=== PATIENT | female | born 1990 | race Caucasian/White ===

== ENCOUNTER 2016-04-04 20:20 | Emergency (ER) | payer BC ==
[2016-04-04 20:33] VITALS: BP 127/65
--- NOTE | 2016-04-04 22:18 | UC ---
Laceration HPI - HPI Summary HPI Summary: OPENING A CAN TONIGHT WHILE MAKING DINNER AND LACERATED RIGHT 3RD FINGER AT THE BASE. HAS FULL ROM. NO NUMBNESS. LAST TDAP 2015 - History Of Current Complaint Chief Complaint: UCLaceration Stated Complaint: FINGER LAC Time Seen by Provider: 04/04/16 22:08 Hx Obtained From: Patient Laceration Location: Finger - RIGHT 3RD FINGER Mechanism Of Injury: Sharp Trauma Onset/Duration: Sudden Onset, Lasting Hours, Still Present Severity: Mild Pain Intensity: 2 Pain Scale Used: 0-10 Numeric Aggravating Factors: Movement - Allergies/Home Medications Allergies/Adverse Reactions: Allergies Allergy/AdvReac Type Severity Reaction Status Date / Time No Known Allergies Allergy Verified 04/04/16 20:33 Home Medications: Home Medications Yyuvpeo-Dhkjcjazbe[facility]-[place] [Excedrin Migraine 250-250-65 mg] 2 tab PO PRN [History] Vitamins W/ Iron Carb [One A Day Womens 28-0.8-235 mg] 1 cap PO 04/04/16 [History] PMH/Surg Hx/FS Hx/Imm Hx Previously Healthy: Yes Neurological History Of: Reports: Migraine - Surgical History Surgical History: Yes Surgery Procedure, Year, and Place: - Family History Known Family History: Negative: Hypertension, Diabetes - Social History Alcohol Use: None Substance Use Type: None Smoking Status (MU): Never Smoked Tobacco - Immunization History Most Recent Influenza Vaccination: 11/25/15 Most Recent Tetanus Shot: 09/24/15 Most Recent Pneumonia Vaccination: never Review of Systems Constitutional: Negative Skin: Other - LACERATION RIGHT 3RD FINGER Respiratory: Negative Cardiovascular: Negative Gastrointestinal: Negative Musculoskeletal: Negative All Other Systems Reviewed And Are Negative: Yes Physical Exam Triage Information Reviewed: Yes Appearance: Well-Appearing, No Pain Distress, Well-Nourished Vital Signs: Initial Vital Signs Temp 97.9 F 04/04/16 20:30 Pulse 70 04/04/16 20:30 Resp 16 04/04/16 20:30 BP 127/65 04/04/16 20:30 Vital Signs Reviewed: Yes Eyes: Positive: Conjunctiva Clear ENT: Positive: Hearing grossly normal Neck: Positive: Supple Respiratory: Positive: No respiratory distress, No accessory muscle use Cardiovascular: Positive: Pulses Normal Abdomen Description: Positive: Soft Musculoskeletal: Positive: ROM Intact, No Edema Neurological: Positive: Alert Psychological: Positive: Age Appropriate Behavior Skin: Positive: Other - 1CM LINEAR LACERATION BASE OF RIGHT THIRD FINGER VOLAR SURFACE Laceration Repair - Laceration Repair 1 Description: Linear Laceration Size After Repair: Length (cm) - 1CM, Width (mm) - 0MM, Depth (mm) - 2MM Modified For Repair: No Anesthesia Used: 2.0% Lido Irrigation With Pressure Irrigation Device: Yes Closure Material: Sutures - 3 SIMPLE INTERRUPTED Closure Method: Single Layer Suture Of: Skin Suture Type: Other - 5-0 SURGIPRO Laceration Course/Dx - Differential Dx - Laceration/Wound Provider Diagnoses: LACERATION REPAIR RIGHT 3RD FINGER Discharge - Discharge Plan Condition: Stable Disposition: HOME Patient Education Materials: Finger Laceration (ED) Referrals: Zulay SAUL,Sonja Aldridge [Primary Care Provider] - If Needed Additional Instructions: APPLY THIN LAYER ANTIBIOTIC OINTMENT UNDER BANDAGE FOR FIRST 2-3 DAYS ONLY. CHANGE BANDAGE DAILY AND NEEDED IF IT BECOMES SOILED OR WET. SEEK FOLLOW-UP IF YOU DEVELOP SPREADING REDNESS OF THE SKIN, PURULENT DRAINAGE, FEVER, INCREASED PAIN OR ANY OTHER CONCERNING SYMPTOMS. RETURN FOR SUTURE REMOVAL IN 10 DAYS
[2016-04-04] MEDS ORDERED: Lidocaine 2% PF * 5 ML VIAL ONE (22:20)
== END 2016-04-04 22:56 | disposition home or self-care (01) ==
LOC: UCEAST 20:20
DX: S61.212A Laceration without foreign body of right middle finger without damage to nail, initial encounter (principal); W26.8XXA Contact with other sharp object(s), not elsewhere classified, initial encounter; Y93.G1 Activity, food preparation and clean up; Y92.9 Unspecified place or not applicable
CPT/HCPCS: 12001; 99211; G0463

== ENCOUNTER 2016-04-16 15:21 | Emergency (ER) | payer BC ==
--- NOTE | 2016-04-16 15:58 | UC ---
Skin Complaint HPI - HPI Summary HPI Summary: Pt is here for suture removal. suture were place 10 days ago at [facility]. - History of Current Complaint Time Seen by Provider: 04/16/16 15:58 Stated Complaint: SUTURE REMOVAL Hx Last Menstrual Period: 2 WEEKS AGO ?: No Onset/Duration: Sudden Onset, Lasting Days Skin Exposure Onset/Duration: Days Ago - 10 days Timing: Constant Onset Severity: Mild Current Severity: None Location: Discrete Aggravating: Touch Alleviating: Other - no direct pressure Associated Signs & Symptoms: Positive: Negative Related History: Other: - laceration repair 10 days ago - Allergy/Home Medications Allergies/Adverse Reactions: Allergies Allergy/AdvReac Type Severity Reaction Status Date / Time No Known Allergies Allergy Verified 04/04/16 20:33 Review of Systems Constitutional: Negative Skin: Other - sutures, [address] no s/sx of infection Eyes: Negative ENT: Negative Respiratory: Negative Cardiovascular: Negative Gastrointestinal: Negative Genitourinary: Negative Motor: Negative Neurovascular: Negative Musculoskeletal: Negative Neurological: Negative Psychological: Negative All Other Systems Reviewed And Are Negative: Yes PMH/Surg Hx/FS Hx/Imm Hx Previously Healthy: Yes Neurological History Of: Reports: Migraine - Surgical History Surgical History: Yes Surgery Procedure, Year, and Place: - Family History Known Family History: Negative: Hypertension, Diabetes - Social History Alcohol Use: None Substance Use Type: None Smoking Status (MU): Never Smoked Tobacco - Immunization History Most Recent Influenza Vaccination: 11/25/15 Most Recent Tetanus Shot: 09/24/15 Most Recent Pneumonia Vaccination: never Physical Exam Triage Information Reviewed: Yes Appearance: Well-Appearing Eye Exam: Normal Neck exam: Normal Respiratory Exam: Other Respiratory: Positive: No respiratory distress Musculoskeletal Exam: Normal Neurological Exam: Normal Psychological Exam: Normal Skin Exam: Other - suture removal, no adverse out comes, laceration skin well approximated and with s/sx of infection. Course/Dx - Differential Diagnoses - Skin Complaint Differential Diagnoses: Other - suture removal - Diagnoses Provider Diagnoses: suture removal. healing wound Discharge - Discharge Plan Condition: Stable Disposition: HOME Patient Education Materials: Stitches Removal (ED) Referrals: Zulay SAUL,Sonja Aldridge [Primary Care Provider] - Additional Instructions: Please follow up with your PCP or return to clinic as needed.
[2016-04-16 16:00] VITALS: BP 133/70
== END 2016-04-16 16:04 | disposition home or self-care (01) ==
LOC: UCEAST 15:21
DX: Z48.02 Encounter for removal of sutures (principal)

== ENCOUNTER 2017-03-04 19:24 | Emergency (ER) | payer BC ==
--- NOTE | 2017-03-04 21:14 | RAD ---
INDICATION: Headaches COMPARISON: December 23, 2009 TECHNIQUE: Noncontrast axial source images were acquired from the skull base to the vertex. FINDINGS: Ventricles/sulci: The ventricles and cisterns are normal in size and configuration for age. Brain parenchyma: There is no focal parenchymal finding, evidence of intracranial mass, or intracranial mass effect. Intracranial hemorrhage:None. Extra-axial spaces: There are no abnormal extra axial fluid collections or evidence of extra-axial mass. Calvarium: There is no calvarial fracture or other calvarial abnormality. Scalp: There is no evidence of scalp or extracalvarial soft tissue abnormality. Paranasal sinuses/mastoid: The paranasal sinuses and mastoid air cells are clear. Other: None. IMPRESSION: NEGATIVE EXAMINATION
[2017-03-04 21:37] LABS: Hematocrit 42 % (35-47); Hemoglobin 14.4 g/dl (12.0-16.0); Mean Corpuscular HGB Conc 34 g/dl (31-36); Mean Corpuscular Hemoglobin 29 pg (27-31); Mean Corpuscular Volume 86 fL (80-97); Mean Platelet Volume 10 um3 (7.4-10.4); Platelet Count 180 10^3/ul (150-450); Red Blood Count 4.92 10^6/ul (4.0-5.4); Red Cell Distribution Width 14 % (10.5-15); White Blood Count 7.5 10^3/ul (3.5-10.8)
[2017-03-04 21:39] LABS: ABS Basophils 0 10^3/ul (0-0.2); ABS Eosinophils 0.2 10^3/ul (0-0.6); ABS Lymphocytes 0.9 10^3/ul (1.0-4.8); ABS Monocytes 0.5 10^3/ul (0-0.8); ABS Nucleated RBC 0 10^3/ul; Eosinophil % 2.6 % (0-6); Lymphocyte % 11.7 % (25-47); Nucleated Red Blood Cells % 0
[2017-03-04 21:53] LABS: INR 1.06 (0.77-1.02)
[2017-03-04] MEDS ORDERED: Ketorolac INJ* 30 MG/ML 1 ML VIAL IV PUSH ONE (22:42)
[2017-03-04] MEDS ORDERED: diPHENhydraMINE IV* 50 MG/ML 1 ml VIAL (BENADRYL) IV ONE (22:42)
[2017-03-04] MEDS ORDERED: Metoclopramide IV* 5 MG/ML 2 ML VIAL IV SLOW PU ONE (22:42)
[2017-03-04] MEDS ORDERED: NS 0.9% 1000 ML* 1,000 ML IV ONE (22:42)
[2017-03-04] MEDS ORDERED: Dexamethasone IV* 4 MG/ML 1 ML (4 MG) IV SLOW PU ONE (22:55)
--- NOTE | 2017-03-04 23:50 | ED ---
Kirill Ellis Stephanie, scribed for Tirso Winn MD on 03/04/17 at 2308 . Headache - HPI Summary HPI Summary: The pt is a 26 y/o F presenting to the ED with c/o migraine HENRY that began at 07: 00 today. Symptoms include sinus pressure (since 2 days ago), photophobia, neck pain, nausea and vomiting. The pt denies rhinorrhea, fever, chills, diaphoresis , dysuria and hematuria. - History Of Current Complaint Chief Complaint: EDHeadache Stated Complaint: MIGRAINE Time Seen by Provider: 03/04/17 22:33 Hx Obtained From: Patient Hx Last Menstrual Period: ? NOW (STATES INCONSISTENT) Onset/Duration: Sudden Onset, Started hours ago - 16, Still Present Timing: Constant Character: Migraine Location of Headache: Frontal Radiates to: neck Aggravating Factor: Nothing Allevating Factors: Nothing Associated Signs And Symptoms: Nausea, Vomiting, Sinus Pressure, Neck Pain, Other (Noted In Comments) - photophobia - Allergies/Home Medications Allergies/Adverse Reactions: Allergies Allergy/AdvReac Type Severity Reaction Status Date / Time No Known Allergies Allergy Verified 06/13/16 15:50 PMH/Surg Hx/FS Hx/Imm Hx Sensory History: Denies: Hx Legally Blind EENT History: Denies: Hx Deafness Neurological History: Reports: Hx Migraine - Surgical History Surgery Procedure, Year, and Place: Infectious Disease History: No Infectious Disease History: Denies: Hx Clostridium Difficile, Hx Hepatitis, Hx Human Immunodeficiency Virus (HIV), Hx of Known/Suspected MRSA, Hx Shingles, Hx Tuberculosis, Hx Known/ Suspected VRE, Hx Known/Suspected VRSA, History Other Infectious Disease, Traveled Outside the [place] in Last 30 Days - Family History Known Family History: Negative: Hypertension, Diabetes - Social History Occupation: Employed Full-time Lives: With Family Alcohol Use: None Substance Use Type: Reports: None Smoking Status (MU): Never Smoked Tobacco Review of Systems Negative: Fever, Chills Positive: Photophobia. Negative: Erythema Positive: Other - sinus pressure. Negative: Sore Throat, Nasal Discharge Negative: Chest Pain Negative: Shortness Of Breath, Cough Positive: Vomiting, Nausea. Negative: Abdominal Pain Negative: dysuria, hematuria Positive: Other - neck pain. Negative: Myalgia, Edema Negative: Rash Psychological: Other - Negative: Dizziness All Other Systems Reviewed And Are Negative: Yes Physical Exam - Summary Physical Exam Summary: Constitutional: Well-developed, Well-nourished, Alert. (-) Distressed Skin: Warm, Dry HENT: Normocephalic; Atraumatic Eyes: Conjunctiva normal, photophobia Neck: Musculoskeletal ROM normal neck. (-) JVD, (-) Stridor, (-) Tracheal deviation Cardio: Rhythm regular, rate normal, Heart sounds normal; Intact distal pulses; The pedal pulses are 2+ and symmetric. Radial pulses are 2+ and symmetric. (-) Murmur Pulmonary/Chest wall: Effort normal. (-) Respiratory distress, (-) Wheezes, (-) Rales Abd: Soft, (-) Tenderness, (-) Distension, (-) Guarding, (-) Rebound Musculoskeletal: (-) Edema Lymph: (-) Cervical adenopathy Neuro: Alert, Oriented x3 Psych: Mood and affect Normal Triage Information Reviewed: Yes Vital Signs On Initial Exam: Initial Vitals Temp Pulse Resp BP Pulse Ox 97.9 F 89 16 109/56 100 03/04/17 19:50 03/04/17 19:50 03/04/17 19:50 03/04/17 19:50 03/04/17 19:50 Vital Signs Reviewed: Yes Diagnostics - Vital Signs Vital Signs Temp Pulse Resp BP Pulse Ox 03/04/17 22:34 79 97 03/04/17 19:50 97.9 F 89 16 109/56 100 - Laboratory Lab Results: Lab Results 03/04/17 03/04/17 03/04/17 Range/Units 21:25 21:25 21:25 WBC 7.5 (3.5-10.8) 10^3/ul RBC 4.92 (4.0-5.4) 10^6/ul Hgb 14.4 (12.0-16.0) g/dl Hct 42 (35-47) % MCV 86 (80-97) fL MCH 29 (27-31) pg MCHC 34 (31-36) g/dl RDW 14 (10.5-15) % Plt Count 180 (150-450) 10^3/ul MPV 10 (7.4-10.4) um3 Neut % (Auto) 79.0 (38-83) % Lymph % (Auto) 11.7 L (25-47) % [place] % (Auto) 6.2 (1-9) % Eos % (Auto) 2.6 (0-6) % Baso % (Auto) 0.5 (0-2) % Absolute Neuts (auto) 6.0 (1.5-7.7) 10^3/ul Absolute Lymphs (auto) 0.9 L (1.0-4.8) 10^3/ul Absolute Monos (auto) 0.5 (0-0.8) 10^3/ul Absolute Eos (auto) 0.2 (0-0.6) 10^3/ul Absolute Basos (auto) 0 (0-0.2) 10^3/ul Absolute Nucleated RBC 0 10^3/ul Nucleated RBC % 0 INR (Anticoag Therapy) 1.06 H (0.77-1.02) APTT 30.3 (26.0-36.3) seconds Sodium 135 (133-145) mmol/L Potassium 4.1 (3.5-5.0) mmol/L Chloride 102 (101-111) mmol/L Carbon Dioxide 25 (22-32) mmol/L Anion Gap 8 (2-11) mmol/L BUN 12 (6-24) mg/dL Creatinine 0.80 (0.51-0.95) mg/dL Est GFR ( Amer) 110.7 (>60) Est GFR (Non-Af Amer) 86.0 (>60) BUN/Creatinine Ratio 15.0 (8-20) Glucose 93 (70-100) mg/dL Calcium 9.6 (8.6-10.3) mg/dL Total Bilirubin 0.50 (0.2-1.0) mg/dL AST 17 (13-39) U/L ALT 10 (7-52) U/L Alkaline Phosphatase 45 (34-104) U/L Total Protein 7.6 (6.4-8.9) g/dL Albumin 4.7 (3.2-5.2) g/dL Globulin 2.9 (2-4) g/dL Albumin/Globulin Ratio 1.6 (1-3) Beta HCG, Quant < 0.60 mIU/mL Result Diagrams: 03/04/17 21:25 03/04/17 21:25 Lab Statement: Any lab studies that have been ordered have been reviewed, and results considered in the medical decision making process. - CT Brain CT Interpretation: No Acute Changes CT Interpretation Completed By: Radiologist - NEGATIVE EXAMINATION Headache Course/Dx - Course Course Of Treatment: Features of typical migraine are present. No concern for subarachnoid hemorrhage or meningitis. ED physician encouraged her to use a netti-pot. Follow up with PCP in 2-3 days. - Diagnoses Provider Diagnoses: Migraine headache, Sinusitis Discharge - Discharge Plan Condition: Stable Disposition: HOME Patient Education Materials: Sinusitis (ED), Migraine Headache (ED) Referrals: Zulay LLAMASC,Sonja Aldridge [Primary Care Provider] - 3 Days Additional Instructions: Return to ED for persistent or worsening symptoms. The documentation as recorded by the Kirill suarez Stephanie accurately reflects the service I personally performed and the decisions made by , Tirso Winn MD.
[2017-03-05 00:41] VITALS: BP 94/52
== END 2017-03-05 00:43 | disposition home or self-care (01) ==
LOC: ED 19:24
DX: G43.909 Migraine, unspecified, not intractable, without status migrainosus (principal); J32.9 Chronic sinusitis, unspecified
CPT/HCPCS: 36415; 70450; 80053; 84702; 85025; 85610; 85730; 96360; 96374; 96375; 99283; J1100; J1200; J1885; J2765

== ENCOUNTER 2017-04-30 16:51 | Emergency (ER) | payer BC ==
[2017-04-30] MEDS ORDERED: Metoclopramide TAB* 10 MG PO ONE (19:02)
[2017-04-30] MEDS ORDERED: Ketorolac INJ* 60 MG/2 ML VIAL IM ONE (19:56)
[2017-04-30] MEDS ORDERED: diPHENhydraMINE IV* 50 MG/ML 1 ml VIAL (BENADRYL) IM ONE (19:57)
[2017-04-30 21:29] VITALS: BP 116/65
--- NOTE | 2017-04-30 21:42 | ED ---
Ismael Ellis Julia, scribed for Ronak Mills on 04/30/17 at 1957 . Headache - HPI Summary HPI Summary: This patient is a 26 year old F presenting to [facility] with a chief complaint of headache for the past two days. Patient states this is a typical migraine headache for her, but has lasted longer than usual. She states she usually get relief from Imitrex, but has been unable to keep the medication down due to recent illness. - History Of Current Complaint Chief Complaint: EDHeadache Stated Complaint: HEADACHE X 2 DAYS, VOMITING Time Seen by Provider: 04/30/17 19:41 Hx Obtained From: Patient Hx Last Menstrual Period: ? NOW (STATES INCONSISTENT) Onset/Duration: Started days ago Timing: Constant Character: Typical Headache Location of Headache: Diffuse Associated Signs And Symptoms: Negative Related History: Similar Episode/DX As: - migraine headache - Allergies/Home Medications Allergies/Adverse Reactions: Allergies Allergy/AdvReac Type Severity Reaction Status Date / Time No Known Allergies Allergy Verified 04/30/17 16:55 Home Medications: Home Medications Aspirin/Acetaminophen/Caffeine [Excedrin Migraine Caplet] 1 each PO Q8HR PRN [History Confirmed 04/30/17] Levonorgestrel (Iud) [Mirena IUD] 20 mcg IU DAILY 04/30/17 [History Confirmed ] SUMAtriptan TAB* [Imitrex TAB*] 25 mg PO SEE INSTRUCTIONS PRN 04/30/17 [History Confirmed 04/30/17] PMH/Surg Hx/FS Hx/Imm Hx Cardiovascular History: Denies: Hx Hypertension Sensory History: Denies: Hx Legally Blind, Hx Deafness Opthamlomology History: Denies: Hx Legally Blind EENT History: Denies: Hx Deafness Neurological History: Reports: Hx Migraine - Surgical History Surgery Procedure, Year, and Place: Infectious Disease History: No Infectious Disease History: Denies: Hx Clostridium Difficile, Hx Hepatitis, Hx Human Immunodeficiency Virus (HIV), Hx of Known/Suspected MRSA, Hx Shingles, Hx Tuberculosis, Hx Known/ Suspected VRE, Hx Known/Suspected VRSA, History Other Infectious Disease, Traveled Outside the [place] in Last 30 Days - Family History Known Family History: Negative: Hypertension, Diabetes - Social History Alcohol Use: None Substance Use Type: Reports: None Smoking Status (MU): Never Smoked Tobacco Review of Systems Positive: Other - recent illness Positive: Headache All Other Systems Reviewed And Are Negative: Yes Physical Exam - Summary Physical Exam Summary: Appearance: Well appearing, no pain distress Skin: warm, dry, reflects adequate perfusion Head/face: normal Eyes: EOMI, CHARIS ENT: normal Neck: supple, non-tender Respiratory: CTA, breath sounds present Cardiovascular: RRR, pulses symmetrical Abdomen: non-tender, soft Bowel: present Musculoskeletal: normal, strength/ROM intact Neuro: normal, sensory motor intact, A&Ox3 Triage Information Reviewed: Yes Vital Signs On Initial Exam: Initial Vitals Temp Pulse Resp BP Pulse Ox 97.9 F 117 18 126/79 97 04/30/17 16:52 04/30/17 16:52 04/30/17 16:52 04/30/17 16:52 04/30/17 16:52 Vital Signs Reviewed: Yes Diagnostics - Vital Signs Vital Signs Temp Pulse Resp BP Pulse Ox 04/30/17 19:46 80 16 125/68 97 04/30/17 19:35 90 97 04/30/17 19:34 125/68 04/30/17 18:51 100.2 F 76 16 102/48 97 04/30/17 16:52 97.9 F 117 18 126/79 97 - Laboratory Lab Statement: Any lab studies that have been ordered have been reviewed, and results considered in the medical decision making process. Re-Evaluation - Re-Evaluation 1 Re-Evaluation Time: 21:20 Change: Improved - Patient is feeling better. Headache Course/Dx - Course Course Of Treatment: Patient presents with headache for the past two days. Patient states this is a typical migraine headache for her, but has lasted longer than usual. Pt refuses CT scan due to a previous negative CT scan performed a month ago. Patient is given Benadryl, Toradol, and Reglan. Patient feels better while in ED. Patient is discharged. - Diagnoses Differential Diagnosis/HQI/PQRI: Migraine Provider Diagnoses: Headache, Headache, migraine Discharge - Sign-Out/Discharge Documenting (check all that apply): Discharge - Discharge Plan Condition: Stable Disposition: HOME Patient Education Materials: Migraine Headache (ED) Referrals: Zulay SAUL,Sonja Aldridge [Primary Care Provider] - 3 Days (Follow up with your primary care physician.) - Billing Disposition and Condition Condition: STABLE Disposition: HOME The documentation as recorded by the Ismael suarez Julia accurately reflects the service I personally performed and the decisions made by , Ronak Mills.
== END 2017-04-30 21:29 | disposition home or self-care (01) ==
LOC: ED 16:51
DX: G43.909 Migraine, unspecified, not intractable, without status migrainosus (principal)
CPT/HCPCS: 96372; 99282; A9270-GY; J1200; J1885

== ENCOUNTER 2017-06-25 11:39 | Emergency (ER) | payer BC ==
[2017-06-25 11:47] VITALS: BP 125/71
--- NOTE | 2017-06-25 11:54 | UC ---
Headache HPI - HPI Summary HPI Summary: 26 yo female presents with headache that started this morning. She tells me that she has a long standing history of chronic migraines for which she has seen neurology many years ago. Her last "bad migraine" was about a month ago - saw her PCP was given imitrex. Says that she has had to go to the ED in the past and was given an injection of something that helped a lot during her headaches. She took excedrin for her headache this morning, but has not had any relief. Did not take her imitrex because her headache had already began. Denies fever, chills, recent illness, vision changes, dizziness, SOB, or chest pain. - History Of Current Complaint Chief Complaint: UCHeadache Stated Complaint: HEADACHE Hx Obtained From: Patient Hx Last Menstrual Period: ? NOW (STATES INCONSISTENT) Onset Of Symptoms: Sudden Initially Headache Was: Moderate Currently Pain Is: Moderate Pain Intensity: 7 Pain Scale Used: 0-10 Numeric Timing: Constant - Allergies/Home Medications Allergies/Adverse Reactions: Allergies Allergy/AdvReac Type Severity Reaction Status Date / Time No Known Allergies Allergy Verified 06/25/17 11:47 PMH/Surg Hx/FS Hx/Imm Hx - Additional Past Medical History Additional PMH: Chronic migraines Previously Healthy: Yes - Surgical History Surgical History: Yes Surgery Procedure, Year, and Place: - Family History Known Family History: Negative: Hypertension, Diabetes - Social History Occupation: Employed Full-time Lives: With Family Alcohol Use: Rare Substance Use Type: None Smoking Status (MU): Never Smoked Tobacco - Immunization History Most Recent Influenza Vaccination: 11/25/15 Most Recent Tetanus Shot: 09/24/15 Most Recent Pneumonia Vaccination: never Review of Systems Constitutional: Negative Skin: Negative Eyes: Negative ENT: Negative Respiratory: Negative Cardiovascular: Negative Gastrointestinal: Negative Genitourinary: Negative Neurovascular: Negative Musculoskeletal: Negative Neurological: Headache Psychological: Negative All Other Systems Reviewed And Are Negative: Yes Physical Exam - Summary Physical Exam Summary: GENERAL: NAD. WDWN. No pain distress. SKIN: No rashes, sores, HEENT: Head: AT/NC Eyes: PERRLA. EOM intact. Conjunctiva clear without inflammation or discharge. Ears: Hearing grossly normal. TMs intact, no bulging, erythema, or edema. Nose: Nasal mucosa pink and moist. NTTP maxillary and frontal sinus. Throat: Posterior oropharynx without exudates, erythema, or tonsillar enlargement. Uvula midline. NECK: FROM. Nontender. No lymphadenopathy. CHEST: CTAB. No r/r/w. No accessory muscle use. Breathing comfortably and in no distress. CV: RRR. Without m/r/g. Pulses intact. Brisk cap refill. MSK: FROM in B/L UEs and LEs. Symmetric strength throughout NEURO: A&Ox3. 3 word recall, remote, recent memory, ability to follow 2-step directions, and attention intact. CN II XII grossly intact. [id number]-[id number] are intact. Gait with normal base. Romberg: maintains balance, no pronator drift. Normal speech. No facial drooping. PSYCH: Age appropriate behavior. Triage Information Reviewed: Yes Vital Signs: Initial Vital Signs Temp 98.1 F 06/25/17 11:44 Pulse 76 06/25/17 11:44 Resp 18 06/25/17 11:44 BP 125/71 06/25/17 11:44 Pulse Ox 100 06/25/17 11:44 Headache Course/Dx - Course Course Of Treatment: Suspect migraine. Given IM toradol 30mg and zofran 4mg. Pt had moderate improvement of her headache. She is interested in following up with a neurologist - I will refer her to Dr. Lomax. - Differential Dx/Diagnosis Provider Diagnoses: Migraine Discharge - Sign-Out/Discharge Documenting (check all that apply): Discharge/Admit/Transfer - Discharge Plan Condition: Stable Disposition: HOME Prescriptions: Ondansetron TAB* [Zofran 4 MG Tab*] 4 mg PO Q8H PRN #9 tab PRN Reason: Nausea Patient Education Materials: Migraine Headache (ED) Referrals: Tana Lomax MD [Medical Doctor] - As Soon As Possible Zulay SAUL,Sonja Aldridge [Primary Care Provider] - Additional Instructions: If you develop a fever, shortness of breath, chest pain, new or worsening symptoms - please call your PCP or go to the ED. 1) Please schedule a follow up with Neurology for further evaluation of your migraines - Billing Disposition and Condition Condition: STABLE Disposition: HOME
[2017-06-25] MEDS ORDERED: Ketorolac INJ* 30 MG/ML 1 ML VIAL IM ONE (12:02)
[2017-06-25] MEDS ORDERED: Ondansetron ODT TAB* 4 MG PO ONE (12:02)
== END 2017-06-25 12:25 | disposition home or self-care (01) ==
LOC: UCEAST 11:39
DX: G43.909 Migraine, unspecified, not intractable, without status migrainosus (principal)
CPT/HCPCS: 96372; 99212; A9270-GY; G0463; J1885

== ENCOUNTER 2017-08-27 18:13 | Emergency (ER) | payer BC ==
[2017-08-27 20:03] VITALS: BP 125/75
--- NOTE | 2017-08-27 20:15 | UC ---
Headache HPI - HPI Summary HPI Summary: This is daniela Hall documenting for attending Benton Hardwick MD. This patient is a 26 year old F presenting to [facility] accompanied by family with a chief complaint of frontal headache that began this morning. The patient rates the pain 7/10 in severity. Symptoms aggravated by nothing. Symptoms were not alleviated by her usual medications. Patient reports nausea. Patient denies fever and chills. Medications reviewed. Allergies reviewed. - History Of Current Complaint Chief Complaint: UCHeadache Stated Complaint: HEADACHE, AND VOMITING Time Seen by Provider: 08/27/17 20:00 Hx Obtained From: Patient Hx Last Menstrual Period: iud ?: No Onset/Duration: Sudden Onset, Lasting Hours, Still Present Onset Of Symptoms: Sudden Initially Headache Was: Moderate Currently Pain Is: Moderate Pain Intensity: 7 Pain Scale Used: 0-10 Numeric Timing: Constant Character: Migraine Location of Headache: Frontal Aggravating Factor(s): Nothing Allevating Factor(s): Nothing Associated Signs And Symptoms: Positive: Nausea. Negative: Fever - Allergies/Home Medications Allergies/Adverse Reactions: Allergies Allergy/AdvReac Type Severity Reaction Status Date / Time No Known Allergies Allergy Verified 08/27/17 20:03 PMH/Surg Hx/FS Hx/Imm Hx Previously Healthy: No Cardiovascular History: Other Other Cardiovascular History: Negative HTN Neurological History: Migraine - Surgical History Surgical History: Yes Surgery Procedure, Year, and Place: - Family History Known Family History: Negative: Hypertension, Diabetes - Social History Occupation: Employed Full-time Lives: With Family Alcohol Use: Rare Substance Use Type: None Smoking Status (MU): Never Smoked Tobacco - Immunization History Most Recent Influenza Vaccination: 11/25/15 Most Recent Tetanus Shot: 09/24/15 Most Recent Pneumonia Vaccination: never Review of Systems Constitutional: Other - Negative fever and chills Neurological: Headache All Other Systems Reviewed And Are Negative: Yes Physical Exam - Summary Physical Exam Summary: General: well-appearing, mild pain distress Skin: warm, color reflects adequate perfusion, dry Head: normal Eyes: EOMI, CHARIS ENT: normal Neck: supple, nontender Respiratory: CTA, breath sounds present Cardiovascular: RRR Abdomen: soft, nontender Bowel: present Musculoskeletal: normal, strength/ROM intact Neurological: sensory/motor intact, A&O x3 Psychological: affect/mood appropriate Triage Information Reviewed: Yes Vital Signs: Initial Vital Signs Temp 97.7 F 08/27/17 19:59 Pulse 95 08/27/17 19:59 Resp 18 08/27/17 19:59 BP 125/75 08/27/17 19:59 Pulse Ox 100 08/27/17 19:59 Vital Signs Reviewed: Yes Headache Course/Dx - Course Course Of Treatment: IMPROVED IN CLINIC. F/U PMD; RECHECK SOONER IF WORSE. - Differential Dx/Diagnosis Provider Diagnoses: MIGRAINE HEADACHE Discharge - Sign-Out/Discharge Documenting (check all that apply): Patient Departure - Discharge Plan Condition: Stable Disposition: HOME Patient Education Materials: Migraine Headache (ED) Referrals: Zulay SAUL,Sonja Aldridge [Primary Care Provider] - Additional Instructions: FOLLOW UP WITH YOUR DOCTOR. GET RECHECKED FOR ANY WORSENING OF YOUR CONDITION OR QUESTIONS OR CONCERNS. - Billing Disposition and Condition Condition: STABLE Disposition: Home
[2017-08-27] MEDS ORDERED: Ondansetron ODT TAB* 4 MG PO ONE (20:20)
[2017-08-27] MEDS ORDERED: Ketorolac INJ* 60 MG/2 ML VIAL IM ONE (20:20)
== END 2017-08-27 21:25 | disposition home or self-care (01) ==
LOC: UCEAST 18:13
DX: G43.909 Migraine, unspecified, not intractable, without status migrainosus (principal); G44.89 Other headache syndrome
CPT/HCPCS: 99211; A9270-GY; G0463; J1885

== ENCOUNTER 2017-10-08 20:00 | Emergency (ER) | payer BC ==
--- NOTE | 2017-10-09 08:40 | UC ---
Discharge - Sign-Out/Discharge Documenting (check all that apply): Post-Discharge Follow Up All imaging exams completed and their final reports reviewed: No Studies - Discharge Plan Disposition: LEFT WITHOUT BEING SEEN Referrals: Zulay SAUL,Sonja Aldridge [Primary Care Provider] - - Billing Disposition and Condition Disposition: Left Without Being Seen
== END 2017-10-08 20:09 | disposition left against medical advice (07) ==
LOC: UCEAST 20:00
DX: R51 Headache (principal); Z53.21 Procedure and treatment not carried out due to patient leaving prior to being seen by health care provider

== ENCOUNTER 2017-11-16 10:22 | Emergency (ER) | payer BC ==
[2017-11-16 10:30] VITALS: BP 116/67
--- NOTE | 2017-11-16 10:43 | UC ---
Headache HPI - HPI Summary HPI Summary: 27 yo female presents with headache. She tells me that she has a history of chronic migraines and takes imitrex for these. Recently she developed her usual migraine symptoms 3 days ago that consist of frontal headache, nausea, and vomiting. These symptoms persisted until yesterday when her headache seemed to be nearly resolved, but she woke up this morning with her migraine in full effect again. She has vomited once this morning and feels nauseous. She says that in the past she has had fluids and toradol with good relief. She denies fever, chills, recent illness, sinus symptoms, SOB, chest pain, dysuria, numbness, tingling, or head injury. - History Of Current Complaint Chief Complaint: UCHeadache Stated Complaint: MIGRAINE,VOMITTING Time Seen by Provider: 11/16/17 10:43 Hx Obtained From: Patient Hx Last Menstrual Period: iud Initially Headache Was: Moderate Currently Pain Is: Moderate Pain Intensity: 6 Pain Scale Used: 0-10 Numeric - Allergies/Home Medications Allergies/Adverse Reactions: Allergies Allergy/AdvReac Type Severity Reaction Status Date / Time No Known Allergies Allergy Verified 11/16/17 10:30 PMH/Surg Hx/FS Hx/Imm Hx - Additional Past Medical History Additional PMH: Migraine - Surgical History Surgical History: Yes Surgery Procedure, Year, and Place: - Family History Known Family History: Negative: Hypertension, Diabetes - Social History Occupation: Employed Full-time Lives: With Family Alcohol Use: Rare Substance Use Type: None Smoking Status (MU): Never Smoked Tobacco - Immunization History Most Recent Influenza Vaccination: 11/25/15 Most Recent Tetanus Shot: 09/24/15 Most Recent Pneumonia Vaccination: never Review of Systems Constitutional: Negative Skin: Negative Eyes: Negative ENT: Negative Respiratory: Negative Cardiovascular: Negative Gastrointestinal: Vomiting, Nausea Genitourinary: Negative Motor: Negative Neurovascular: Negative Musculoskeletal: Negative Neurological: Headache Psychological: Negative All Other Systems Reviewed And Are Negative: Yes Physical Exam - Summary Physical Exam Summary: GENERAL: NAD. WDWN. SKIN: No rashes, sores, ulcers, masses, lesions. HEENT: Head: AT/NC Eyes: PERRLA. EOM intact. Conjunctiva clear without inflammation or discharge. Ears: Hearing grossly normal. TMs intact, no bulging, erythema, or edema. Nose: Nasal mucosa pink and moist. NTTP maxillary and frontal sinus. Throat: Posterior oropharynx without exudates, erythema, or tonsillar enlargement. Uvula midline. NECK: Supple. Nontender. No lymphadenopathy. CHEST: CTAB. No r/r/w. No accessory muscle use. Breathing comfortably and in no distress. CV: RRR. Without m/r/g. Pulses intact. Brisk cap refill. ABDOMEN: Soft. NTTP. No distention or guarding. No CVA tenderness. Bowel sounds present MSK: FROM in B/L UEs and LEs with symmetric strength. NEURO: A&Ox3. CN: II: Peripheral sung intact. Vision normal. III, IV, : EOMI. No nystagmus. PERRLA. V: Sensations intact and symmetric. Opens mouth and clenches teeth. VII: No facial asymmetry. Forehead wrinkles. Grins, shuts eyes, frowns, puffs cheeks. VIII: Hearing intact to finger rub. IX, X: Swallows and coughs. Uvula midline. XI: Shrugs shoulders. Turns head against resistance. XII : No tongue deviation [id number] are intact. Gait with normal base. Romberg : maintains balance, no pronator drift. Normal speech. No facial drooping. PSYCH: Age appropriate behavior. Triage Information Reviewed: Yes Vital Signs: Initial Vital Signs Temp 97.9 F 11/16/17 10:27 Pulse 73 11/16/17 10:27 Resp 18 11/16/17 10:27 BP 116/67 11/16/17 10:27 Pulse Ox 100 11/16/17 10:27 Vital Signs Reviewed: Yes Re-Evaluation - Re-Evaluation First Eval Re-Evaluation Time: 12:02 Change: Improved - S/p fluids, toradol, and zofran pt reports 90% resolution of her symptoms. Still with some residual left front headache, but overall significantly improved Headache Course/Dx - Course Course Of Treatment: Migraine. In the clinic pt was given 1L NS, toradol IV, and Zofran IV with good relief of her headache. Will dc with an rx for Zofran if her nausea continues and advised to f/u with her PCP if her migraines become more frequent. - Differential Dx/Diagnosis Provider Diagnoses: Migraine Discharge - Sign-Out/Discharge Documenting (check all that apply): Patient Departure All imaging exams completed and their final reports reviewed: No Studies - Discharge Plan Condition: Stable Disposition: HOME Prescriptions: Ondansetron HCl [Zofran 4 MG TAB] 4 mg PO Q8H PRN #15 tab PRN Reason: Nausea Patient Education Materials: Migraine Headache (ED) Forms: *Work Release Referrals: Zulay SAUL,Sonja Aldridge [Primary Care Provider] - Additional Instructions: If you develop a fever, shortness of breath, chest pain, new or worsening symptoms - please call your PCP or go to the ED. - Billing Disposition and Condition Condition: STABLE Disposition: Home
[2017-11-16] MEDS ORDERED: NS 0.9% 1000 ML* 1,000 ML IV ONE (10:48)
[2017-11-16] MEDS ORDERED: Ketorolac INJ* 30 MG/ML 1 ML VIAL IV PUSH ONE (10:48)
[2017-11-16] MEDS ORDERED: Ondansetron INJ* 2 MG/ML VIAL IV ONE (10:48)
== END 2017-11-16 12:30 | disposition home or self-care (01) ==
LOC: UCEAST 10:22
DX: G43.909 Migraine, unspecified, not intractable, without status migrainosus (principal)
CPT/HCPCS: 96360; 96374; 96375; 99212; G0463; J1885; J2405

== ENCOUNTER 2017-12-07 15:24 | Emergency (ER) | payer BC ==
[2017-12-07] MEDS ORDERED: Metoclopramide IV* 5 MG/ML 2 ML VIAL IV ONE (18:23)
[2017-12-07] MEDS ORDERED: Ketorolac INJ* 30 MG/ML 1 ML VIAL IV PUSH ONE (18:23)
[2017-12-07] MEDS ORDERED: diPHENhydraMINE IV* 50 MG/ML 1 ml VIAL (BENADRYL) IV PRN (18:23)
[2017-12-07] MEDS ORDERED: NS 0.9% 1000 ML* 1,000 ML IV SCH (18:30)
[2017-12-07] MEDS ORDERED: diPHENhydraMINE IV* 50 MG/ML 1 ml VIAL (BENADRYL) IV ONE (18:56)
--- NOTE | 2017-12-07 19:34 | UC ---
Headache HPI - HPI Summary HPI Summary: 27-year-old female with a history of migraines presents with onset of severe headache behind her left eye and side of face upon waking this morning. States this is fairly typical of her past migraines. Associated with photophobia, phonophobia, and nausea. She took an Excedrin Migraine without any relief. Also took a Zofran earlier which did help with the nausea. Denies fever, chills , visual disturbances, aura, URI symptoms, chest pain, shortness of breath, abdominal pain, or vomiting. - History Of Current Complaint Chief Complaint: UCHeadache Stated Complaint: HEADACHE, AND VOMITING Time Seen by Provider: 12/07/17 18:16 Hx Obtained From: Patient Hx Last Menstrual Period: iud ?: No Onset/Duration: Sudden Onset, Lasting Hours Initially Headache Was: Moderate Pain Intensity: 8 Timing: Constant Character: Migraine Location of Headache: Other: - See HPI Aggravating Factor(s): Bright Lights, Other - Loud sound Allevating Factor(s): Nothing Associated Signs And Symptoms: Positive: Nausea. Negative: Dizziness, Seizure, Vomiting, Sinus Pressure, Fever, Neck Pain, Neck Stiffness, Decreased LOC, Visual Changes - Allergies/Home Medications Allergies/Adverse Reactions: Allergies Allergy/AdvReac Type Severity Reaction Status Date / Time No Known Allergies Allergy Verified 12/07/17 18:02 Home Medications: Home Medications Aspirin/Acetaminophen/Caffeine [Excedrin Migraine Caplet] 1 each PO DAILY [History Confirmed 12/07/17] PMH/Surg Hx/FS Hx/Imm Hx Neurological History: Migraine - Surgical History Surgical History: Yes Surgery Procedure, Year, and Place: - Family History Family History: Noncontributory - Social History Occupation: Employed Full-time Lives: With Family Alcohol Use: Rare Substance Use Type: None Smoking Status (MU): Never Smoked Tobacco - Immunization History Most Recent Influenza Vaccination: 11/25/15 Most Recent Tetanus Shot: 09/24/15 Most Recent Pneumonia Vaccination: never Review of Systems Constitutional: Negative Eyes: Photophobia ENT: Negative Respiratory: Negative Cardiovascular: Negative Gastrointestinal: Nausea Neurological: Headache Is Patient Immunocompromised?: No All Other Systems Reviewed And Are Negative: Yes Physical Exam Triage Information Reviewed: Yes Appearance: Well-Appearing, No Pain Distress, Well-Nourished Vital Signs: Initial Vital Signs Temp 98.3 F 12/07/17 17:58 Pulse 78 12/07/17 17:58 Resp 16 12/07/17 17:58 BP 101/64 12/07/17 17:58 Pulse Ox 100 12/07/17 17:58 Eyes: Positive: Conjunctiva Clear. Negative: Discharge ENT: Positive: TMs normal, Uvula midline. Negative: Pharyngeal erythema, Nasal congestion, Nasal drainage, Tonsillar swelling, Tonsillar exudate, Sinus tenderness Neck: Positive: Supple, Nontender, No Lymphadenopathy Respiratory: Positive: Lungs clear, Normal breath sounds, No respiratory distress Cardiovascular: Positive: RRR, No Murmur Abdomen Description: Positive: Nontender, No Organomegaly, Soft. Negative: Distended, Guarding Neurological Exam: Normal Neurological: Positive: Alert Skin Exam: Normal Re-Evaluation - Re-Evaluation First Eval Re-Evaluation Time: 19:28 Change: Improved Comment: Patient resting quietly on exam table. States headache is still present but improving. Nausea subsided. She has received approximately 400 ml saline at this time. Headache Course/Dx - Course Course Of Treatment: 27 year old female with history of migraine headache presents with intractible migraine that started upon waking this morning. Associated with nausea, photophobia, and phonophobia. Exam was unremarkable. She was given approximately 500 ml IVF, ketoralac, metoclopramide, and diphenhydramine with good relief in symptoms. She is to follow up with her PCP. Warning symptoms reviewed. Verbalizes understanading and agrees with POC. She is discharged home with mother to drive. - Differential Dx/Diagnosis Differential Diagnosis/HQI/PQRI: Migraine, Sinus Headache, Tension Headache Provider Diagnoses: Migraine headache Discharge - Sign-Out/Discharge Documenting (check all that apply): Patient Departure All imaging exams completed and their final reports reviewed: No Studies - Discharge Plan Condition: Stable Disposition: HOME Patient Education Materials: Migraine Headache (ED) Referrals: Zulay SAUL,Sonja Aldridge [Primary Care Provider] - If Needed Additional Instructions: You were given IV fluids, ketoralac, metoclopramide, and diphenhydramine in the clinic tonight with good relief. Continue to use your migraine medications you have at home as needed.\ Stay well hydrated. Get plenty of rest. Follow up with your primary care provider as needed. Seek immediate medical attention in the emergency room if you develop a sudden severe headache that is not typical of your migraine, you have any worsening of your headache, visual disturbances, confusion, are difficult to arouse, persistent vomiting, you become weak or dizzy, or have any worsening of symptoms. - Billing Disposition and Condition Condition: STABLE Disposition: Home
[2017-12-07 19:48] VITALS: BP 113/67
== END 2017-12-07 20:07 | disposition home or self-care (01) ==
LOC: UCEAST 15:24
DX: G43.909 Migraine, unspecified, not intractable, without status migrainosus (principal); Z79.82 Long term (current) use of aspirin
CPT/HCPCS: 96360; 96374; 96375; 99212; G0463; J1200; J1885; J2765

== ENCOUNTER 2018-01-03 11:46 | Emergency (ER) | payer BC ==
--- OUTSIDE RECORDS SUMMARY | 2018-01-03 12:14 | XMS REPORT ---
:1990 External Reference #:[id number] Author Organization [facility] Address [address] [place] [address] Phone [phone] Care Team Providers Name Role Phone Monica Staton Care Team Information Adjunct Trainer Unavailable Monica Staton Primary Care Physician Unavailable Payers Type Date Identification Numbers Payment Provider Subscriber Commercial Effective: Policy Number: BC/BS Of LG Derick Burns 2017 [id number] PayID: [id number] [place] [address] Problems Description No Information Social History Type Date Description Comments Education Highest level completed, Associates Degree Human services Lives With Alone Home Environment Apartment Pets None 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 do not take more than 4 per week. Prochlorperazine 12/14 Active Tablets 10mg 10tab take one G43.009 Elizabeth C. Maleate s tablet Juan, every 6 PASTE MIXING SUPERVISOR hours as needed. Mometasone Furoate 03/16 Active Suspension 50mcg/Act 17gm 2 sprays J01.90 Elizabeth C. /2018 in each Juan, nostril PASTE MIXING SUPERVISOR once daily Sumatriptan 03/16 Active Tablets 50mg 10tab Take 1 G43.009 Elizabeth C. Succinate /2017 s Tablet Juan, By Mouth PASTE MIXING SUPERVISOR AT 1St Sign Of Headache . DO Not Take More Than 3 Days In A Row. 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 01/10 day for 5 days Tazorac Hx Cream 0.05% - 01/10 Aczone Hx Gel 5% - 01/10 Vital Signs Date Vital Result Comment 12/14/2017 BP Systolic 110 mmHg BP Diastolic 60 mmHg Heart Rate 76 /min Body Temperature 96.4 F Respiratory Rate 16 /min Height 66 inches 5'6" Weight 143.00 lb BMI (Body Mass Index) 23.1 kg/m2 03/16/2017 BP Systolic 120 mmHg BP Diastolic 78 mmHg Heart Rate 60 /min Body Temperature 97.3 F Respiratory Rate 18 /min O2 % BldC Oximetry 97 % Height 66 inches 5'6" Weight 143.00 lb BMI (Body Mass Index) 23.1 kg/m2 01/10/2017 BP Systolic 102 mmHg BP Diastolic 60 mmHg Heart Rate 76 /min Body Temperature 98.0 F Height 66 inches 5'6" Weight 143.12 lb BMI (Body Mass Index) 23.1 kg/m2 11/09/2014 BP Systolic 140 mmHg BP Diastolic 70 mmHg Heart Rate 100 /min Body Temperature 100.0 F Respiratory Rate 16 /min Height 66 inches 5'6" Weight 145.00 lb BMI (Body Mass Index) 23.4 kg/m2 04/30/2012 BP Systolic 100 mmHg BP Diastolic 70 mmHg Heart Rate 76 /min Body Temperature 99.5 F Respiratory Rate 16 /min Height 66 inches 5'6" Weight 143.00 lb BMI (Body Mass Index) 23.1 kg/m2 04/23/2012 BP Systolic 100 mmHg BP Diastolic 60 mmHg Heart Rate 60 /min Body Temperature 99.5 F Respiratory Rate 16 /min Height 66 inches 5'6" Weight 143.00 lb BMI (Body Mass Index) 23.1 kg/m2 Results Test Date Test Result H/L Range Note CBC Auto Diff 03/04/2017 White Blood Count 7.5 10^3/uL 3.5-10.8 1 Red Blood Count 4.92 10^6/uL 4.0-5.4 1 Hemoglobin 14.4 g/dL 12.0-16.0 1 Hematocrit 42 % 35-47 1 Mean Corpuscular Volume 86 fL 80-97 1 Mean Corpuscular Hemoglobin 29 pg 27-31 1 Mean Corpuscular HGB Conc 34 g/dL 31-36 1 Red Cell Distribution Width 14 % 10.5-15 1 Platelet Count 180 10^3/uL 150-450 1 Mean Platelet Volume 10 um3 7.4-10.4 1 Abs Neutrophils 6.0 10^3/uL 1.5-7.7 1 Abs Lymphocytes 0.9 10^3/uL Low 1.0-4.8 1 Abs Monocytes 0.5 10^3/uL 0-0.8 1 Abs Eosinophils 0.2 10^3/uL 0-0.6 1 Abs Basophils 0 10^3/uL 0-0.2 1 Abs Nucleated RBC 0 10^3/uL 1 Granulocyte % 79.0 % 38-83 1 Lymphocyte % 11.7 % Low 25-47 1 Monocyte % 6.2 % 1-9 1 Eosinophil % 2.6 % 0-6 1 Basophil % 0.5 % 0-2 1 Nucleated Red Blood Cells % 0 1 Inr/Protime 03/04/2017 Inr 1.06 High 0.77-1.02 1 Laboratory test finding 03/04/2017 Partial Thrombo Time 30.3 seconds 26.0 -36.3 1 PTT Comp Metabolic Panel 03/04/2017 Sodium 135 mmol/L 133-145 1 Potassium 4.1 mmol/L 3.5-5.0 1 Chloride 102 mmol/L 101-111 1 Co2 Carbon Dioxide 25 mmol/L 22-32 1 Anion Gap 8 mmol/L 2-11 1 Glucose 93 mg/dL 70-100 1 Blood Urea Nitrogen 12 mg/dL 6-24 1 Creatinine 0.80 mg/dL 0.51-0.95 1 BUN/Creatinine Ratio 15.0 8-20 1 Calcium 9.6 mg/dL 8.6-10.3 1 Total Protein 7.6 g/dL 6.4-8.9 1 Albumin 4.7 g/dL 3.2-5.2 1 Globulin 2.9 g/dL 2-4 1 Albumin/Globulin Ratio 1.6 1-3 1 Total Bilirubin 0.50 mg/dL 0.2-1.0 1 Alkaline Phosphatase 45 U/L 34-104 1 Alt 10 U/L 7-52 1 Ast 17 U/L 13-39 1 Egfr Non- 86.0 >60 1 Egfr 110.7 >60 1, 2 Laboratory test finding 03/04/2017 HCG < 0.60 mIU/mL 1, 3 Laboratory test finding 01/10/2017 Quickstrep negative Negative Influenza A&B-fma 01/10/2017 Influenza A neg Influenza B neg Laboratory test 06/13/2016 Urine Culture And SEE RESULT BELOW 4, 5 finding Sensitivities Poc Urinalysis 06/13/2016 Poc Glucose, Urine Negative Negative Poc Bilirubin, Urine Negative Negative Poc Ketone, Urine Negative Negative Poc Specific [place], Urine 1.025 1.010-1.030 Poc Blood, Urine 3+ Negative Poc pH, Urine 6.0 5-9 Poc Protein, Urine 1+ Negative Poc Urobilinogen, Urine 0.2 Negative Poc Nitrite, Urine Positive Negative Poc Leukocytes, Urine Trace Negative Poc Color, Urine Krystin Poc Clarity, Urine Clear 6 Hepatitis Panel, Acute 11/23/2014 Hep A Ab, IgM Negative Negative 7 HBsAg Screen Negative Negative 7 Hep B Core Ab, IgM Negative Negative 7 Hep C Virus Ab <0.1 s/coratio 0.0-0.9 7, 8 Panel [id number] [facility] PT Only 11/23/2014 HIV 1/O/2 Abs-Index Value <1.00 < 1.00 7, 9 HIV 1/O/2 Abs, Qual Non Reactive Non Reactive 7 Laboratory test 11/23/2014 RPR Non Reactive Non Reactive 7 finding Vaginitis/Vaginosis 11/09/2014 Dolores species Negative Negative 10, 11 Dna Probe Gardnerella vaginalis Positive Negative 10, 12 Trichomonas vaginalis Negative Negative 10, 13 Chlam/GC And HSV 1&2 Chelsie 11/09/2014 Chlamydia by Chelsie Negative Negative 10, 14 Gonococcus by Chelsie Negative Negative 10, 15 HSV 1 Chelsie Negative Negative 10, 16 HSV 2 Chelsie Positive Negative 10, 17 Ua - Non Micro (Fma) 11/09/2014 Appearance SLIGHTLY CLOUDY Color YELLOW Glucose, Urine (a/CMC/CTX) NEG Bilirubin NEG Ketones NEG SP Grav 1.010 Blood SMALL No Micro Per LG PH 5.0 Protein NEG Urobil 0.2 Nitrite NEG Leukocytes ([facility] [place]) SMALL Laboratory test finding 02/10/2014 Human Papilloma Virus Positive Negative 18 Rna CBC Auto Diff 09/09/2012 White Blood Count 6.0 10^3/uL 4.8-10.8 Red Blood Count 5.04 10^6/uL 4.0-5.4 Hemoglobin 14.3 g/dL 12.0-16.0 Hematocrit 43 % 35-47 Mean Corpuscular Volume 85 fL 80-97 Mean Corpuscular Hemoglobin 28 pg 27-31 Mean Corpuscular HGB Conc 33 g/dL 31-36 Red Cell Distribution Width 13 % 10.5-15 Platelet Count 108 10^3/uL Low 150-450 Mean Platelet Volume 10 um3 7.4-10.4 Abs Neutrophils 4.2 10^3/uL 1.5-7.7 Abs Lymphocytes 0.8 10^3/uL Low 1.0-4.8 Abs Monocytes 0.7 10^3/uL 0-0.8 Abs Eosinophils 0.2 10^3/uL 0-0.6 Abs Basophils 0 10^3/uL 0-0.2 Abs Nucleated RBC 0 10^3/uL Granulocyte % 70.7 % 38-83 Lymphocyte % 14.1 % Low 25-47 Monocyte % 11.6 % High 1-9 Eosinophil % 3.2 % 0-6 Basophil % 0.4 % 0-2 Nucleated Red Blood Cells % 0.1 Comp Metabolic Panel 09/09/2012 Sodium 139 mmol/L 133-145 Potassium 4.1 mmol/L 3.5-5.0 Chloride 103 mmol/L 101-111 Co2 Carbon Dioxide 29.0 mmol/L 22-32 Anion Gap 7.0 mmol/L 2-11 Glucose 102 mg/dL High 70-100 Blood Urea Nitrogen 13 mg/dL 6-24 Creatinine 0.90 mg/dL 0.50-1.40 BUN/Creatinine Ratio 14.4 8-20 Calcium 9.7 mg/dL 8.1-9.9 Total Protein 8.1 g/dL 6.2-8.1 Albumin 4.6 g/dL 3.6-5.4 Globulin 3.5 g/dL 2-4 Albumin/Globulin Ratio 1.3 1-3 Total Bilirubin 0.7 mg/dL 0.4-1.5 Alkaline Phosphatase 56 U/L 30-110 Alt 16 U/L 14-54 Ast 22 U/L 12-42 Egfr Non- 78.3 >60 Egfr 100.7 >60 19 Laboratory test 09/09/2012 C Reactive Protein 4.6 mg/dL High Less than 0.5 finding Laboratory test 04/30/2012 Thin Prep SEE NOTE 20 finding W/HPV(Lsil/RENZO/Asc) 1 Giant Platelets 2 Because ethnic data is not always readily available, this report includes an eGFR for both -Americans and non- Americans. The National Kidney Disease Education Program (NKDEP) does not endorse the use of the MDRD equation for patients that are not between the ages of 18 and 70, are , have extremes of body size, muscle mass, or nutritional status, or are non- or non-. According to the National Kidney Foundation, irrespective of diagnosis, the stage of the disease is based on the level of kidney function: Stage Description GFR(mL/min/1.73 m(2)) 1 Kidney damage with normal or decreased GFR 90 2 Kidney damage with mild decrease in GFR 60-89 3 Moderate decrease in GFR 30-59 4 Severe decrease in GFR 15-29 5 Kidney failure <15 (or dialysis) 3 <5.0 Negative 5.0 - 25.0 Indeterminate (Repeat testing recommended after 72 hours) >25.0 Positive Perimenopausal women can display HCG levels of up to 20 mIU/mL 4 [id number] 5 SEE RESULT BELOW Name: DERICK THOMPSON : [address]: Vaibhav Martinez MD Acct: [id number] Unit: [id number] AGE: 25 Location: [facility] Re06/13/16 SEX: F Status: DEP ER SPEC: [id number] RAMONA: 06/13/16-[address] [facility] [address]: Kelly MAYA REQ: [id number] RECD: 06/13/16 STATUS: NISREEN SWANSON DR: [facility] Sonja Biswas PASTE MIXING SUPERVISOR _ SOURCE: URINE SPDESC: ORDERED: Urine Culture COMMENTS: [id number] Procedure Result Reported Site Urine Culture Final 06/15/16- 0810 ML Organism 1 [facility] KOSERI Welsh Count >100,000 (Many) CFU/ML 1. [facility]ROBACTER KOSERI M.I.C. RX --------- ------ Cefazolin <=4 S Cefepime <=1 S Ceftriaxone <=1 S Ciprofloxacin <=0.25 S Gentamicin <=1 S Levofloxacin <=0.12 S Meropenem <=0.25 S Nitrofurantoin <=16 S Tetracycline <=1 S Pipercillin/Tazobactam <=4 S Trimethoprim/Sulfamethoxazole <=20 S Amoxicillin/Clavulanic Acid >=32 R Aztreonam <=1 S Contact the Microbiology Department for any additional antibiotic reporting. * ML - MAIN LAB ([facility]) . END OF REPORT * ML=Testing performed at Main Lab DEPARTMENT OF PATHOLOGY, [address] [place] [address] Elijah Clark M.D. Director [facility] # [id number] 6 Senior Mortgage Underwriter: [id number] 3 SST 8 Negative: < 0.8 Indeterminate: 0.8 - 0.9 Positive: > 0.9 In order to reduce the incidence of a false positive result, the CDC recommends that all s/co ratios between 1.0 and 10.9 be confirmed by a more specific supplemental or PCR testing. [employer] offers HCV Ab w/Reflex to Verification test #[id number]. 9 Index Value: Specimen reactivity relative to the negative cutoff. 10 SRC:VAGINAL 1 AFFIRM SWAB 11 Source of Specimen: VAGINAL 1 AFFIRM SWAB 12 Source of Specimen: VAGINAL 1 AFFIRM SWAB 13 Source of Specimen: VAGINAL 1 AFFIRM SWAB 14 Source of Specimen: VAGINAL 1 AFFIRM SWAB 15 Source of Specimen: VAGINAL 1 AFFIRM SWAB 16 Source of Specimen: VAGINAL 1 AFFIRM SWAB 17 Source of Specimen: VAGINAL 1 AFFIRM SWAB 18 The high-risk HPV types detected by the assay include: 16, 18, 31, 33, 35, 39, 45, 51, 52, 56, 58, 59, 66, and 68. 19 Because ethnic data is not always readily available, this report includes an eGFR for both -Americans and non- Americans. The National Kidney Disease Education Program (NKDEP) does not endorse the use of the MDRD equation for patients that are not between the ages of 18 and 70, are , have extremes of body size, muscle mass, or nutritional status, or are non- or non-. According to the National Kidney Foundation, irrespective of diagnosis, the stage of the disease is based on the level of kidney function: Stage Description GFR(mL/min/1.73 m(2)) 1 Kidney damage with normal or decreased GFR 90 2 Kidney damage with mild decrease in GFR 60-89 3 Moderate decrease in GFR 30-59 4 Severe decrease in GFR 15-29 5 Kidney failure <15 (or dialysis) 20 [employer]. DEPARTMENT OF PATHOLOGY or Extension 4082 EYE SPECIALIST CYTOLOGY REPORT PATIENT: DERICK THOMPSON : 1990 AGE: 21 Y SEX: F ACCT: [id number] PROCEDURE DATE: 04/30/2012 DATE RECEIVED: 05/02/2012 REQUESTING PROVIDER: SONJA BISWAS NP [place] [facility] [place] [id number] PATIENT DATA: [id number] SPECIMEN SUBMITTED: * * (HPVII) THIN PREP W/HPV (LSIL/ASC/RENZO) * * ENDOCERVICAL RELEVANT HISTORY: Contraceptive: DEPO-NO LONGER Prev.normal: 4 YRS AGO Comment: LMP 2 YEARS AGO SPECIMEN ADEQUACY SATISFACTORY FOR EVALUATION, ENDOCERVICAL TRANSFORMATION ZONE COMPONENT PRESENT GENERAL CATEGORIZATION EPITHELIAL CELL ABNORMALITY: SEE "INTERPRETATION/RESULT" INTERPRETATION/ RESULT HIGH GRADE SQUAMOUS INTRAEPITHELIAL LESION ENCOMPASSING MODERATE DYSPLASIA. RECOMMENDATIONS Follow-up as clinically indicated. See www.asccp.org and articles in Am J of Obstet Gynecol 2007 Oct; 197(4), for current consensus recommendation guidelines. COMMENTS Thin Prep Pap tests are examined with an FDA approved location-guidance system. ADDITIONAL COPIES SENT TO: Screened/Rescreened Electronically Signed Sign Out Date/Time: by: by: JOY RODRÍGUEZ MD 05/02/2012 16:33 PATHOLOGIST Note: The Pap smear is a screening test designed to aid in the detection of premalignant and malignant conditions of the uterine cervix. It is not a diagnostic procedure and should not be used as the sole means of detecting cervical cancer. Both false-positive and false-negative reports do occur. 00 UA Pap Smear performed at [place] Dir: Yi Leyva MD, [address] [facility] [address] 01 school speech language pathologist [facility] [place] Dir: Richard Aparicio MD, [address] [facility] [address] 02 [facility] [place] Dir: Benton Wilcox MD, [address] [place] [id number] For inquiries regarding HPV test results, the physician may contact Lab [facility]: [phone] . Procedures Description No Information Encounters Type Date Location Provider CPT E/M Dx Office Visit 03/16/2017 2:15p [facility] [place] [address] H61.23 G43.009 J01.90 Office Visit 01/10/2017 3:15p [facility] [place] [address] J02.9 B34.9 Office Visit 11/09/2014 3:00p [facility] CHARLES Cosby [address] R50.9 R30.0 N76.0 G43.009 Office Visit 04/30/2012 3:15p [facility] Jimi Wang [address] V72.31 Office Visit 04/23/2012 3:00p [facility] Jimi Wang [address] 796.2 Plan of Care 12/14/2017 - Elizabeth Martinez NPG43.009 Migraine w/o aura, not intractable, w/ o status migrainosusNew Medication:Maxalt 10 mgProchlorperazine Maleate 10 mgComments:STOP taking excedrin altogether. If you can go 4 weeks without aspirin/ibuprofen/acetaminophen, you can retintroduce it but not more than 3 times per week.Drink plenty of water.Start a magnesium supplement.AllComments: 1. Patient has been queried about patient's goals/preferences and functional/ lifestyle goals at relevant visits. If relevant, describe: Has been discussed, noted above2. Treatment goals as explainedto the patient: see above3. Are there barriers to meeting treatment goals? Yes If Yes, please describe: Barriers include possible insurance limits, disease process, and difficulty with lifestyle changes4. Self-Management goals as described to the patient: Yes , see above As always, we strongly encourage a healthy diet and making physical activity a part of your every day life. If you have questions about how or where to start, please contact the office.
[2018-01-03 12:15] VITALS: BP 120/74
[2018-01-03] MEDS ORDERED: Metoclopramide IV* 5 MG/ML 2 ML VIAL ONE (12:38)
[2018-01-03] MEDS ORDERED: diPHENhydraMINE PO* 50 MG PO ONE (12:38)
[2018-01-03] MEDS ORDERED: Ketorolac INJ* 60 MG/2 ML VIAL IM ONE (12:38)
--- NOTE | 2018-01-03 13:01 | UC ---
Headache HPI - HPI Summary HPI Summary: 27 year old female presents with history of frequent migraines presents with a unilateral headache that is not responding to her typical medications. Patient states the headache began last night, she went to sleep but the headache did not improve. Patient took her prescribed compazine and Excedrin Migraine with minimal relief. Patient endorses nausea without vomiting, light sensitivity, and a headache located behind the left eye. Patient reports getting headaches 3 times a week of the same nature with unilateral pain located behind her eye. She was prescribed Imitrex but reports that does not work. Patient is otherwise healthy. - History Of Current Complaint Chief Complaint: UCHeadache Stated Complaint: HEADACHE Time Seen by Provider: 01/03/18 12:30 Hx Obtained From: Patient Hx Last Menstrual Period: mirena ?: No Onset/Duration: Sudden Onset, Lasting Hours Onset Of Symptoms: Still Present Initially Headache Was: Severe Currently Pain Is: Severe Pain Intensity: 8 Pain Scale Used: 0-10 Numeric Timing: Constant Character: Throbbing Location of Headache: Other: - behind left eye. Aggravating Factor(s): Bright Lights Allevating Factor(s): Nothing Associated Signs And Symptoms: Positive: Nausea. Negative: Dizziness, Vomiting , Fever, Neck Pain, Visual Changes Related History: Similar Episode/DX As: - Patient was previously diagnosed with migraine headaches. - Risk Factors SAH Risk Factors: Negative Meningitis Risk Factors: Negative SDH Risk Factors: Negative Temporal Arteritis Risk Factors: Female, - Allergies/Home Medications Allergies/Adverse Reactions: Allergies Allergy/AdvReac Type Severity Reaction Status Date / Time No Known Allergies Allergy Verified 12/07/17 18:02 PMH/Surg Hx/FS Hx/Imm Hx Previously Healthy: Yes Neurological History: Migraine - Surgical History Surgical History: Yes Surgery Procedure, Year, and Place: - Family History Known Family History: Negative: Hypertension, Diabetes Family History: Noncontributory - Social History Occupation: Employed Full-time Alcohol Use: Rare Substance Use Type: None Smoking Status (MU): Never Smoked Tobacco - Immunization History Most Recent Influenza Vaccination: 11/25/15 Most Recent Tetanus Shot: 09/24/15 Most Recent Pneumonia Vaccination: never Review of Systems All Other Systems Reviewed And Are Negative: Yes Constitutional: Negative: Fever, Chills Skin: Negative: Rash Eyes: Positive: Photophobia. Negative: Blurred Vision, Diplopia ENT: Positive: Sinus Congestion. Negative: Sore Throat, Ear Ache, Nasal Discharge Respiratory: Negative: Shortness Of Breath Cardiovascular: Negative: Palpitations, Chest Pain Gastrointestinal: Positive: Nausea. Negative: Abdominal Pain, Vomiting Genitourinary: Positive: Negative Physical Exam Triage Information Reviewed: Yes Appearance: Well-Appearing, Well-Nourished, Pain Distress Vital Signs: Initial Vital Signs Temp 98 F 01/03/18 12:12 Pulse 83 01/03/18 12:12 Resp 16 01/03/18 12:12 BP 120/74 01/03/18 12:12 Pulse Ox 100 01/03/18 12:12 Vital Signs Reviewed: Yes Eyes: Positive: Other: - PERRL, EOMI ENT: Positive: Normal ENT inspection, Hearing grossly normal, Pharynx normal. Negative: Nasal congestion, Nasal drainage Neck: Positive: Supple, Nontender, No Lymphadenopathy Respiratory: Positive: Lungs clear, Normal breath sounds Cardiovascular: Positive: RRR, Pulses Normal Musculoskeletal: Positive: Strength Intact, ROM Intact Neurological: Positive: Alert Skin: Negative: Rashes Headache Course/Dx - Course Course Of Treatment: 27 year old female with history of migraines presents with unilateral headache not responding to typical migraine medication. The headache is located primarily on the left behind the eye and associated with some nausea and light sensitivity. Patient reports she took excedrin and compazine this morning with little relief. Patient has been prescribed Imitrex but reports that it provides no relief of headaches. Patient reports getting similar headaches 3 times per week. Patient was given Reglan and Toradol IM and Benadryl PO. Patient reports feeling better after being given the medication. A diagnosis of cluster headaches was made based on the location and frequency of headaches. Patient was prescribed Verapamil 120mg ER for headache prophylaxis. Patient instructed to follow up with her PCP for reassessment and adjustment of medication as needed. Discharge plan and instructions discussed with patient, she demonstrated understanding and was agreeable. - Differential Dx/Diagnosis Differential Diagnosis/HQI/PQRI: Migraine, Temporal Arteritis, Tension Headache , Other - cluster headache Provider Diagnosis: Cluster headache Discharge - Sign-Out/Discharge Documenting (check all that apply): Patient Departure All imaging exams completed and their final reports reviewed: No Studies - Discharge Plan Condition: Improved Disposition: HOME Prescriptions: Verapamil HCl [Verapamil ER] 120 mg PO DAILY #30 [email or web address] Patient Education Materials: Cluster Headache (ED) Referrals: Karlo Sharma MD [Medical Doctor[facility] - [facility]Sonja Aldridge [Primary Care Provider] - Additional Instructions: With acute headache Compazine taken with ibuprofen, Benadryl, water and caffeine may help best. The Compazine and Benadryl may make you drowsy. Follow up with your neurologist as scheduled. Call your primary care physician to schedule follow-up in the next 1-2 weeks. Return if worse, uncontrolled headache, persistent vomiting, new symptoms, worse or other concerns. Prescribed verapamil is typically dosed 120 mg of the ER formulation twice a day. We have started you at 120 mg daily but this can be increased by your doctor. Typically, benefit is not seen until the second week of therapy. - Billing Disposition and Condition Condition: IMPROVED Disposition: Home - Attestation Statements Document Initiated by Scribe: No
== END 2018-01-03 13:35 | disposition home or self-care (01) ==
LOC: UCEAST 11:46
DX: G44.009 Cluster headache syndrome, unspecified, not intractable (principal); R11.0 Nausea
CPT/HCPCS: 96372; 99212; A9270-GY; G0463; J1885; J2765

== ENCOUNTER 2018-04-11 15:41 | Emergency (ER) | payer SELFPAY ==
[2018-04-11] MEDS ORDERED: diPHENhydraMINE IV* 50 MG/ML 1 ml VIAL (BENADRYL) IV ONE (16:44)
[2018-04-11] MEDS ORDERED: Ketorolac INJ* 30 MG/ML 1 ML VIAL IV PUSH ONE (16:45)
[2018-04-11] MEDS ORDERED: Ondansetron INJ* 2 MG/ML VIAL IV ONE (16:45)
[2018-04-11] MEDS ORDERED: NS 0.9% 1000 ML** 1,000 ML IV ONE (16:46)
--- NOTE | 2018-04-11 16:54 | ED ---
Headache - HPI Summary HPI Summary: 27 yo wf h/o migraines c/o persistent migraines since 7 AM this morning, associated with n/v x 20 times, still VERY nauseous, photophobic, with frontal pulsatile HENRY - History Of Current Complaint Chief Complaint: UCHeadache Stated Complaint: HEADACHE Time Seen by Provider: 04/11/18 16:31 Hx Obtained From: Patient Hx Last Menstrual Period: IUD Onset/Duration: Sudden Onset, Started hours ago Initially Headache Was: Severe Currently Pain Is: Severe Timing: Constant Character: Throbbing, Migraine - Allergies/Home Medications Allergies/Adverse Reactions: Allergies Allergy/AdvReac Type Severity Reaction Status Date / Time No Known Allergies Allergy Verified 04/11/18 16:30 PMH/Surg Hx/FS Hx/Imm Hx Previously Healthy: Yes Cardiovascular History: Denies: Hx Hypertension Sensory History: Denies: Hx Legally Blind, Hx Deafness Opthamlomology History: Denies: Hx Legally Blind Neurological History: Reports: Hx Migraine - Surgical History Surgery Procedure, Year, and Place: Infectious Disease History: No Infectious Disease History: Denies: Hx Clostridium Difficile, Hx Hepatitis, Hx Human Immunodeficiency Virus (HIV), Hx of Known/Suspected MRSA, Hx Shingles, Hx Tuberculosis, Hx Known/ Suspected VRE, Hx Known/Suspected VRSA, History Other Infectious Disease, Traveled Outside the [place] in Last 30 Days - Family History Known Family History: Negative: Hypertension, Diabetes Family History: Noncontributory - Social History Alcohol Use: Rare Substance Use Type: Reports: None Smoking Status (MU): Never Smoked Tobacco Review of Systems - ROS Summary Review of Systems Summary: Constitutional: Negative Eyes: Negative ENT: Negative Cardiovascular: Negative Respiratory: Negative Gastrointestinal: Negative Genitourinary: Negative Musculoskeletal: Negative Neurological: severe migraine flare- up Psychological: Normal All Other Systems Reviewed And Are Negative: Yes All Other Systems Reviewed And Are Negative: Yes Physical Exam - Summary Physical Exam Summary: Vital Signs Reviewed: Yes Skin: Positive: Warm Head/Face: Positive: Normal Head/Face Inspection Eyes: Positive: Normal ENT: Positive: Normal ENT inspection Neck: Positive: Supple Respiratory/Lung Sounds: Positive: Clear to Auscultation Cardiovascular: Positive: Normal, RRR, S1, S2 Abdomen Description: Positive: Nontender Musculoskeletal: Positive: Normal Neurological: Positive: pulsatile frontal HENRY, no focal deficits Psychiatric: Positive: Normal, Affect/Mood Appropriate Vital Signs On Initial Exam: Initial Vitals Temp Pulse Resp BP Pulse Ox 36.8 C 99 12 127/84 97 04/11/18 16:28 04/11/18 16:28 04/11/18 16:28 04/11/18 16:28 04/11/18 16:28 Diagnostics - Vital Signs Vital Signs Temp Pulse Resp BP Pulse Ox 04/11/18 16:28 36.8 C 99 12 127/84 97 - Laboratory Lab Statement: Any lab studies that have been ordered have been reviewed, and results considered in the medical decision making process. Headache Course/Dx - Course Assessment/Plan: persistent migraine- improved with migraine cocktail- IVF, Troadil benadryl, zofran, and Toradol - Diagnoses Provider Diagnoses: Migraine aura, persistent, intractable Discharge - Sign-Out/Discharge Documenting (check all that apply): Patient Departure All imaging exams completed and their final reports reviewed: Yes - Discharge Plan Condition: Stable Disposition: HOME Prescriptions: Ondansetron ODT TAB* [Zofran 4 MG Odt TAB*] 4 mg PO Q6H PRN 5 Days #20 tab.odt PRN Reason: Nausea Patient Education Materials: Acute Headache (ED) Referrals: Zulay SAUL,Sonja Aldridge [Primary Care Provider] - - Billing Disposition and Condition Condition: STABLE Disposition: Home
[2018-04-11 18:45] VITALS: BP 119/71
== END 2018-04-11 18:42 | disposition home or self-care (01) ==
LOC: UCEAST 15:41
DX: G43.519 Persistent migraine aura without cerebral infarction, intractable, without status migrainosus (principal)
CPT/HCPCS: 96360; 96374; 96375; 99212; G0463; J1200; J1885; J2405

== ENCOUNTER 2018-05-26 12:05 | Emergency (ER) | payer SELFPAY ==
[2018-05-26 12:12] VITALS: BP 112/78
[2018-05-26] MEDS ORDERED: Ketorolac INJ* 30 MG/ML 1 ML VIAL IV PUSH ONE (12:25)
[2018-05-26] MEDS ORDERED: diPHENhydraMINE IV* 50 MG/ML 1 ml VIAL (BENADRYL) SLOW PUSH ONE (12:25)
[2018-05-26] MEDS ORDERED: Ondansetron INJ* 2 MG/ML VIAL IV ONE (12:25)
[2018-05-26] MEDS ORDERED: NS 0.9% 1000 ML** 1,000 ML IV ONE (12:29)
--- NOTE | 2018-05-26 12:30 | UC ---
Headache HPI - HPI Summary HPI Summary: 27-year-old woman comes in with a chief complaint of headache. Headache started yesterday is primarily in the forehead behind the eyes and in the occiput. Its typical location of her recurrent headaches that she's had since she has been 7 years old. She saw a neurologist when she was a child has not seen one since. She tried some [id number] medications at home which did not really help. She is nauseous with the headaches and also the light does bother her eyes and makes the headache worse. No focal weakness or numbness no upper respiratory tract infection symptoms no fevers no chills. No back pain. - History Of Current Complaint Chief Complaint: UCHeadache Stated Complaint: HEADACHE Time Seen by Provider: 05/26/18 12:15 Hx Last Menstrual Period: IUD Pain Intensity: 8 - Allergies/Home Medications Allergies/Adverse Reactions: Allergies Allergy/AdvReac Type Severity Reaction Status Date / Time No Known Allergies Allergy Verified 05/26/18 12:12 Home Medications: Home Medications Acetaminophen [Pain Relief] 1,000 mg PO 05/26/18 [History] diphenhydrAMINE HCl [Benadryl Allergy 25 MG CAP] 25 mg PO 05/26/18 [History] PMH/Surg Hx/FS Hx/Imm Hx Previously Healthy: Yes Neurological History: Migraine - Surgical History Surgical History: Yes Surgery Procedure, Year, and Place: - Family History Known Family History: Negative: Hypertension, Diabetes Family History: Noncontributory - Social History Alcohol Use: Rare Substance Use Type: None Smoking Status (MU): Never Smoked Tobacco - Immunization History Most Recent Influenza Vaccination: 11/25/15 Most Recent Tetanus Shot: 09/24/15 Most Recent Pneumonia Vaccination: never Review of Systems All Other Systems Reviewed And Are Negative: Yes Constitutional: Positive: Negative Skin: Positive: Negative Eyes: Positive: Photophobia ENT: Positive: Negative Respiratory: Positive: Negative Cardiovascular: Positive: Negative Gastrointestinal: Positive: Vomiting, Nausea Motor: Positive: Negative Neurovascular: Positive: Negative Musculoskeletal: Positive: Negative Neurological: Positive: Headache Psychological: Positive: Negative Is Patient Immunocompromised?: No Physical Exam Triage Information Reviewed: Yes Appearance: Well-Appearing, Well-Nourished, Pain Distress - MILD Vital Signs: Initial Vital Signs Temp 98.0 F 05/26/18 12:09 Pulse 99 05/26/18 12:09 Resp 18 05/26/18 12:09 BP 112/78 05/26/18 12:09 Pulse Ox 98 05/26/18 12:09 Vital Signs Reviewed: Yes Eyes: Positive: Other: - EOMI ENT: Positive: Normal ENT inspection, TMs normal. Negative: Nasal congestion Neck: Positive: Supple Respiratory: Positive: Lungs clear, Normal breath sounds, No respiratory distress Cardiovascular: Positive: RRR Musculoskeletal Exam: Normal Musculoskeletal: Positive: Strength Intact, ROM Intact Neurological Exam: Normal Neurological: Positive: Alert, Muscle Tone Normal Psychological Exam: Normal Psychological: Positive: Age Appropriate Behavior Skin Exam: Normal Headache Course/Dx - Course Course Of Treatment: HENRY improved in clinic after IV NS 1L, Benanadryl 50mg, Zofran 4mg and Toradol 30mg. F/U this week with Dr Rodriguez as scheduled. Reevaluate sooner if worse. - Differential Dx/Diagnosis Provider Diagnosis: Headache Discharge - Sign-Out/Discharge Documenting (check all that apply): Patient Departure All imaging exams completed and their final reports reviewed: No Studies - Discharge Plan Condition: Stable Disposition: HOME Prescriptions: Ondansetron ODT TAB* [Zofran 4 MG Odt TAB*] 4 mg PO Q6H PRN #10 tab.odt PRN Reason: Nausea Patient Education Materials: Acute Headache (ED) Referrals: Zulay SAUL,Sonja Aldridge [Primary Care Provider] - Additional Instructions: FOLLOW UP WITH DR RODRIGUEZ, NEUROLOGY, THIS WEEK SCHEDULED. GET REEVALUATED SOONER IF YOUR CONDITION WORSENS; PAIN, WEAKNESS, NUMBNESS, DIFFICULTY WITH VISION OR SPEECH, DEHYDRATION, FEVER OR ANY QUESTIONS OR CONCERNS. - Billing Disposition and Condition Condition: STABLE Disposition: Home
== END 2018-05-26 13:40 | disposition home or self-care (01) ==
LOC: UCEAST 12:05
DX: R51 Headache (principal); H53.149 Visual discomfort, unspecified; R11.2 Nausea with vomiting, unspecified
CPT/HCPCS: 96361; 96374; 96375; 99212; G0463; J1200; J1885; J2405

== ENCOUNTER 2018-09-15 18:22 | Emergency (ER) | payer SELFPAY ==
[2018-09-15] MEDS ORDERED: NS 0.9% 1000 ML** 1,000 ML IV ONE (18:26)
[2018-09-15] MEDS ORDERED: Ketorolac INJ* 30 MG/ML 1 ML VIAL IV ONE (18:26)
[2018-09-15] MEDS ORDERED: Ondansetron INJ* 2 MG/ML VIAL IV ONE (18:26)
--- NOTE | 2018-09-15 18:27 | UC ---
Headache HPI - HPI Summary HPI Summary: 27 yo female presents with migraine. She has a long history of chronic migraines and has been seen in the clinic multiple times within the last few years for these. Today she tells me that she woke up with a frontal pulsating headache and took some excedrin, which did not help. She began to get nauseous and has had 2 episodes of vomiting. Has been sleeping in a dark room most of the day, but headache has not improved. This headache progression is her usual per her and previous visit notes here. She is scheduled to see Neurology this month sometime, but is unsure the exact date. Denies dizziness, SOB, chest pain , abdominal pain, dysuria. States no chance of today - on IUD. - History Of Current Complaint Stated Complaint: MIGRAINE/ THROWING UP Time Seen by Provider: 09/15/18 18:26 Hx Obtained From: Patient Hx Last Menstrual Period: IUD Onset/Duration: Sudden Onset Onset Of Symptoms: Gradual Pain Intensity: 7 Pain Scale Used: 0-10 Numeric - Allergies/Home Medications Allergies/Adverse Reactions: Allergies Allergy/AdvReac Type Severity Reaction Status Date / Time No Known Allergies Allergy Verified 09/15/18 18:35 PMH/Surg Hx/FS Hx/Imm Hx - Additional Past Medical History Additional PMH: Migraines - Surgical History Surgical History: Yes Surgery Procedure, Year, and Place: - Family History Known Family History: Negative: Hypertension, Diabetes Family History: Noncontributory - Social History Lives: With Family Alcohol Use: Rare Substance Use Type: None Smoking Status (MU): Never Smoked Tobacco - Immunization History Most Recent Influenza Vaccination: 11/25/15 Most Recent Tetanus Shot: 09/24/15 Most Recent Pneumonia Vaccination: never Review of Systems All Other Systems Reviewed And Are Negative: Yes Constitutional: Positive: Negative Skin: Positive: Negative Eyes: Positive: Negative ENT: Positive: Negative Respiratory: Positive: Negative Cardiovascular: Positive: Negative Gastrointestinal: Positive: Negative Genitourinary: Positive: Negative Motor: Positive: Negative Neurovascular: Positive: Negative Musculoskeletal: Positive: Negative Neurological: Positive: Headache Psychological: Positive: Negative Physical Exam - Summary Physical Exam Summary: GENERAL: NAD. WDWN. No pain distress. SKIN: No rashes, sores, ulcers, masses, lesions. HEENT: Head: AT/NC. Eyes: PERRLA. EOM intact. Conjunctiva clear without inflammation or discharge. Ears: Hearing grossly normal. TMs intact, no bulging, erythema, or edema. Nose: Nasal mucosa pink and moist. NTTP maxillary and frontal sinus. Throat: Posterior oropharynx without exudates, erythema, or tonsillar enlargement. Uvula midline. NECK: Supple. Nontender. FROM CHEST: CTAB. No r/r/w. No accessory muscle use. Breathing comfortably and in no distress. CV: RRR. Without m/r/g. Pulses intact. Brisk cap refill. ABDOMEN: Soft. NTTP. Bowel sounds present MSK: FROM in B/L UEs and LEs with symmetric strength. NEURO: A&Ox3. 3 word recall, remote, recent memory, ability to follow 2-step directions, and attention intact. CN: II: Peripheral sung intact. Vision normal. III, IV, : EOMI. No nystagmus. PERRLA. V: Sensations intact and symmetric. Opens mouth and clenches teeth. VII: No facial asymmetry. Forehead wrinkles. Grins, shuts eyes, frowns, puffs cheeks. VIII: Hearing intact to finger rub. IX, X: Swallows and coughs. Uvula midline. XI: Shrugs shoulders. Turns head against resistance. XII: No tongue deviation [id number] are intact. Gait with normal base. Romberg: maintains balance, no pronator drift. Normal speech. No facial drooping. PSYCH: Age appropriate behavior. Triage Information Reviewed: Yes Vital Signs Reviewed: Yes Re-Evaluation - Re-Evaluation First Eval Re-Evaluation Time: 19:18 Comment: Pt sleeping Second Eval Re-Evaluation Time: 20:11 Change: Improved Comment: Pt reports feeling much better. Eating crackers and drinking yovana elver Headache Course/Dx - Course Course Of Treatment: In the clinic she was given 1L NS, toradol 30mg, benadryl 50mg, and zofran 4mg for her migraine. She reported feeling much improved and was able to eat and drink without issue. She had no episodes of vomiting in the clinic. Will dc with dx of migraine and have her keep her appt with neurology for this month. - Differential Dx/Diagnosis Provider Diagnosis: Migraine Discharge - Sign-Out/Discharge Documenting (check all that apply): Patient Departure All imaging exams completed and their final reports reviewed: No Studies - Discharge Plan Condition: Stable Disposition: HOME Patient Education Materials: Migraine Headache (ED) Referrals: Zulay SAUL,Sonja Aldridge [Primary Care Provider] - Additional Instructions: If you develop a fever, shortness of breath, chest pain, new or worsening symptoms - please call your PCP or go to the ED immediately. Please keep your appointment with Neurology for further management of your headache - Billing Disposition and Condition Condition: STABLE Disposition: Home - Attestation Statements Provider Attestation: I was available for consult. This patient was seen by the BRANNON. The patient was not presented to, seen by, or examined by me. -Fara
[2018-09-15] MEDS ORDERED: diPHENhydraMINE IV* 50 MG/ML 1 ml VIAL (BENADRYL) IV ONE (18:31)
[2018-09-15 18:37] VITALS: BP 122/73
== END 2018-09-15 20:45 | disposition home or self-care (01) ==
LOC: UCEAST 18:22
DX: G43.909 Migraine, unspecified, not intractable, without status migrainosus (principal)
CPT/HCPCS: 96360; 96365; 96374; 96375; 99211; G0463; J1200; J1885; J2405

== ENCOUNTER 2021-10-28 09:18 | Inpatient (IN) ==
[~2021-10-28 09:18] MED LIST: Acetaminophen IV 1 GM/100ML 1,000 MG/100 ML BAG IV PRN; Metoclopramide 5 MG/ML VIAL (10 mg) IV PRN; Naloxone 0.4 mg VIAL 0.4 mg/ml 1 ml VIAL IV PUSH PRN; Ondansetron 4 mg VIAL 2 MG/ML 2 ml VIAL IV PRN
[2021-10-28] MEDS ORDERED: Buffered Lidocaine 1% SYRIN 1 ml INTRADERM ONE ×2 (09:35→10:16)
[2021-10-28 10:08] LABS: ABS Eosinophils 0.2 10^3/ul (0-0.6); ABS Lymphocytes 1.4 10^3/ul (1.0-4.8); ABS Monocytes 0.7 10^3/ul (0-0.8); ABS Neutrophils 7.6 10^3/ul (1.5-7.7); Eosinophil % 1.9 %; Hematocrit 32 % (35-47); Hemoglobin 10.9 g/dL (12.0-16.0); Lymphocyte % 14.1 %; Mean Corpuscular HGB Conc 34 g/dL (31-36); Mean Corpuscular Hemoglobin 29 pg (27-31); Mean Corpuscular Volume 85 fL (80-97); Mean Platelet Volume 10.4 fL (7.4-10.4); Platelet Count 117 10^3/uL (150-450); Red Blood Count 3.74 10^6 /uL (3.70-4.87); Red Cell Distribution Width 14 % (10-15)
[2021-10-28] MEDS ORDERED: Lactated Ringers 1000 ml BAG 1,000 ML IV ONE (10:16)
[2021-10-28] MEDS ORDERED: Sodium Citrate/Citric Acid LIQ 15 ML UDC PO ONE (10:57)
[2021-10-28] MEDS ORDERED: Lactated Ringers 1000 ml BAG 1,000 ML IV SCH ×2 (11:00→14:00)
[2021-10-28] MEDS ORDERED: Oxytocin 10 UNITS/ML 1 ML VIAL ONE (11:16)
[2021-10-28] MEDS ORDERED: Ondansetron 4 mg VIAL 2 MG/ML 2 ml VIAL ONE (11:18)
[2021-10-28] MEDS ORDERED: Dexamethasone IV 4 MG/ML VIAL 1 ml VIAL ONE (11:18)
[2021-10-28] MEDS ORDERED: Morphine PF AMP (0.5MG/ML) 5 MG/10 ML AMP ONE (11:19)
[2021-10-28] MEDS ORDERED: ceFOXitin 2 GM IVPREMIX 2 GM/50 ML BAG IVPB ONE (12:00)
[2021-10-28] MEDS ORDERED: Glycopyrrolate IV 0.2 MG/ML 1 ML VIAL ONE (12:42)
[2021-10-28] MEDS ORDERED: Dibucaine 1% OINT 28.35 GM TUBE PR PRN (13:52)
[2021-10-28] MEDS ORDERED: Witch Hazel PAD JAR TOPICAL PRN (13:52)
[2021-10-28] MEDS ORDERED: Glycerin ADULT 2.4 gm SUPP PR PRN (13:52)
[2021-10-29 06:44] LABS: ABS Eosinophils 0.1 10^3/ul (0-0.6); ABS Lymphocytes 1.4 10^3/ul (1.0-4.8); ABS Monocytes 1.1 10^3/ul (0-0.8); Eosinophil % 0.8 %; Hematocrit 28 % (35-47); Hemoglobin 9.5 g/dL (12.0-16.0); Lymphocyte % 11.3 %; Mean Corpuscular HGB Conc 34 g/dL (31-36); Mean Corpuscular Hemoglobin 29 pg (27-31); Mean Corpuscular Volume 86 fL (80-97); Nucleated Red Blood Cells % 0.1; Platelet Count 116 10^3/uL (150-450); Red Blood Count 3.23 10^6 /uL (3.70-4.87); Red Cell Distribution Width 15 % (10-15); White Blood Count 12.7 10^3/uL (3.5-10.8)
[2021-10-29 13:27] LABS: Urine Appearance Clear; Urine Bilirubin Negative (Negative); Urine Blood Negative (Negative); Urine Color Straw; Urine Glucose Negative (Negative); Urine Ketones Negative (Negative); Urine Nitrite Negative (Negative); Urine Protein Negative (Negative); Urine Specific Gravity 1.004 (1.002-1.030); Urine Urobilinogen Negative (Negative)
[2021-10-29 13:49] LABS: Urine Benzodiazepine Screen None Detected (None Detect); Urine Cannabinoids Screen None Detected (None Detect); Urine Opiates Screen None Detected (None Detect)
[2021-10-30 10:13] VITALS: BP 135/85
== END 2021-10-30 14:00 | disposition home or self-care (01) | DRG 540 ==
LOC: MCHOB 09:18
PROVIDERS: ADMIT Obstetrics & Gynecology; ATTEND Obstetrics & Gynecology